=== PATIENT | male | born 1970 | race Two or more races ===

== ENCOUNTER 2023-03-22 22:16 | Emergency (ER) | payer OTHER ==
[~2023-03-22] VITALS: Ht 188 cm; Wt 77.1 kg
[2023-03-22] MEDS ORDERED: IV NS 0.9% 1,000 ML BAG IV ONE (23:30)
[2023-03-22] MEDS ORDERED: ONDANSETRON HCL/PF 4 MG/2 ML VIAL IVP ONE (23:30)
[2023-03-22] MEDS ORDERED: SUMATRIPTAN SUCCINATE 6 MG/0.5 ML VIAL SQ ONE ×2 (23:30→23:58)
[2023-03-22] MEDS ORDERED: METOCLOPRAMIDE HCL 10 MG/2 ML VIAL IV ONE (23:30)
[2023-03-22] MEDS ORDERED: diphenhydrAMINE HCL 50 MG/ML VIAL IV ONE (23:30)
[2023-03-22] MEDS ORDERED: diphenhydrAMINE HCL 50 MG/ML VIAL ONE (23:58)
[2023-03-22] MEDS ORDERED: METOCLOPRAMIDE HCL 10 MG/2 ML VIAL ONE (23:59)
[2023-03-22] MEDS ORDERED: ONDANSETRON HCL/PF 4 MG/2 ML VIAL ONE (23:59)
[2023-03-23 00:39] LABS: CALCIUM, SERUM 9.7 mg/dL (8.5-10.1); CARBON DIOXIDE 24 mmol/L (21-32); CHLORIDE 102 mmol/L (98-107); GLUCOSE 104 mg/dL (74-106); POTASSIUM 3.3 mmol/L (3.5-5.1); SODIUM SERUM 139 mmol/L (136-145); UREA NITROGEN, BLOOD 16 mg/dL (7-18)
[2023-03-23 01:01] LABS: BASOPHILS % (AUTO) 0.4 % (0.0-2.0); EOSINOPHILS % (AUTO) 0.2 % (0.0-6.0); HEMATOCRIT 43 % (39-51); HEMOGLOBIN 14.1 g/dL (13.5-17.5); LYMPHOCYTES # (AUTO) 1.9 K/uL (0.8-4.8); LYMPHOCYTES % (AUTO) 19.3 % (20.0-44.0); MEAN CORPUSCULAR HEMOGLOBIN 24 PG (26.0-33.0); MEAN CORPUSCULAR HGB CONC 33 g/dl (31.0-36.0); MEAN CORPUSCULAR VOLUME 73 fL (80-96); MONOCYTES # (AUTO) 0.8 K/uL (0.1-1.30); MONOCYTES % (AUTO) 7.9 % (2.0-12.0); NEUTROPHILS # (AUTO) 7.1 K/uL (1.8-8.9); NEUTROPHILS % (AUTO) 72.2 % (43.0-81.0); PLATELET COUNT (AUTO) 315 K/uL (150-450); RED BLOOD CELL COUNT(AUTO) 5.94 MIL/uL (4.5-6.0); RED CELL DISTRIBUTION WIDTH 20.3 % (11.5-15.0); WHITE BLOOD COUNT (AUTO) 9.8 K/uL (4.3-11.0)
[2023-03-23] MEDS ORDERED: KETO10TA2 PO (01:16)
[2023-03-23] MEDS ORDERED: SUMA100T PO (01:16)
[2023-03-23] MEDS ORDERED: ONDA4TAB11 PO (01:16)
[2023-03-23 01:26] VITALS: BP 131/83; TEMP 98; O2SAT 100
[2023-03-23 04:12] LABS: ANISOCYTOSIS 1+; LYMPHOCYTES % (MANUAL) 24 % (16-48); MONOCYTES % (MANUAL) 12 % (0-11.0); NEUTROPHILS % (MANUAL) 64 (42-76); PLATELET ESTIMATE ADEQUATE; TARGET CELLS 1+
== END 2023-03-23 01:27 | disposition home or self-care (01) ==
LOC: ER 22:23
DX: B34.9 Viral infection, unspecified (principal); R51.9 Headache, unspecified; R11.2 Nausea with vomiting, unspecified; Z20.822 Contact with and (suspected) exposure to COVID-19
CPT/HCPCS: 99284; 96374; 96375; 96361; 93005; 36415; 96372; 87426; 85025; 80048; 84484; 85007; J1200; J3030; J2765; J2405; J7030; C9803